=== PATIENT | male | born 1975 | race Two or more races ===

== ENCOUNTER 2022-11-16 20:40 | Emergency (ER) | payer MEDICAID, OTHER ==
[~2022-11-16] VITALS: Ht 154.9 cm; Wt 71.0 kg
[2022-11-16 21:53] LABS: Basophils # (auto) 0.1 10 ^3/uL (0-0.2); Basophils % (auto) 0.9 % (0.0-2.0); Eosinophils # (auto) 0.6 10 ^3/uL (0-0.8); Eosinophils % (auto) 7.7 % (0.0-7.0); Hematocrit 47.2 % (41.0-53.0); Hemoglobin 15.9 g/dL (13.5-17.5); Lymphocytes # (auto) 1.8 10 ^3/uL (0.4-5.4); Lymphocytes % (auto) 23.3 % (10.0-50.0); Mean Corpuscular Hemoglobin 30.3 pg (28.0-32.0); Mean Corpuscular Hgb Conc. 33.7 g/dL (32.0-36.0); Mean Corpuscular Volume 90.1 fL (80.0-100.0); Monocytes # (auto) 0.6 10 ^3/uL (0-1.3); Monocytes % (auto) 7.5 % (0.0-12.0); Neutrophils # (auto) 4.7 10 ^3/uL (1.6-8.6); Neutrophils % (auto) 60.6 % (37.0-80.0); Nucleated Red Blood Cells % 0.3 %; Red Blood Cells 5.24 10^6/uL (4.5-5.90); Red Cell Distribution Width 13.4 % (11.8-14.3); White Blood Cell 7.8 10^3/uL (4.4-10.8)
[2022-11-16 22:06] LABS: Albumin 3.8 g/dL (3.4-5.0); Calcium 8.3 mg/dL (8.5-10.1); Potassium 3.5 mmol/L (3.5-5.1)
[2022-11-16 22:08] LABS: Urine Bacteria FEW /hpf (None Seen); Urine Blood Negative /uL (Negative); Urine Mucus FEW (None Seen); Urine Specific Gravity 1.031 (1.001-1.035); Urine WBC 1 /hpf (0 - 3)
[2022-11-16 22:09] LABS: BUN/Creatinine Ratio 16.3 (10.0-20.0); Bilirubin, Total 0.4 mg/dL (0.2-1.0); Total Protein 7.5 g/dL (6.4-8.2)
[2022-11-16] MEDS ORDERED: ONDANSETRON ODT 4 MG TAB PO ONE (23:45)
[2022-11-16] MEDS ORDERED: LIDOCAINE VISCOUS 2% 15ML UD PO ONE (23:45)
[2022-11-16] MEDS ORDERED: MAALOX PLUS or MAALOX 30 ML PO ONE (23:45)
[2022-11-16] MEDS ORDERED: DONNATAL 5ml ORAL Elix (BELLADONNA ALK-PHENOBARB) PO ONE (23:45)
[2022-11-16] MEDS ORDERED: ACETAMINOPHEN 325 MG TAB PO ONE (23:45)
[2022-11-16] MEDS ORDERED: ZOFR4T PO (23:49)
[2022-11-16] MEDS ORDERED: FAMO20TA10 PO (23:49)
[2022-11-17 00:18] VITALS: BP 128/88; PULSE 59; RESP 17; TEMP 98; O2SAT 98
== END 2022-11-17 00:23 | disposition home or self-care (01) ==
LOC: ER 20:40
DX: K29.70 Gastritis, unspecified, without bleeding (principal); K40.90 Unilateral inguinal hernia, without obstruction or gangrene, not specified as recurrent; N42.0 Calculus of prostate
CPT/HCPCS: 36415; 74176; 80053; 81001; 83690; 84484; 85025; 93005; 99284; Q0162

== ENCOUNTER 2023-07-05 00:33 | Emergency (ER) | payer SELFPAY ==
[~2023-07-05] VITALS: Ht 154.9 cm; Wt 78.0 kg
[~2023-07-05 00:33] MED LIST: FAMO20TA10 PO; ZOFR4T PO
[2023-07-05 00:34] VITALS: BP 151/94; PULSE 57; RESP 20; TEMP 98.2
[2023-07-05] MEDS ORDERED: [UNRECOGNIZED DRUG - OTHER] RE (03:10)
[2023-07-05 03:22] VITALS: O2SAT 96
== END 2023-07-05 03:47 | disposition home or self-care (01) ==
LOC: ER 00:33
DX: K64.8 Other hemorrhoids (principal); Z79.899 Other long term (current) drug therapy